=== PATIENT | female | born 1970 | race Caucasian/White ===

== ENCOUNTER 2018-09-24 08:04 | Emergency (ER) | payer BC ==
--- OUTSIDE RECORDS SUMMARY | 2018-09-24 08:07 | XMS REPORT | Summary of Care ---
:1970 Author Organization [facility] [place] Address [address], [place] [address]- Encounter HQ Encntr_alias(FIN) [id number] Date(s): 07/28/17 - 07/28/17 [facility] [place] [address] [place] [address]- [phone] Discharge Disposition: Home or Self Care Attending Physician: Jil Ervin MD Vital Signs No data available for this section Problem List No data available for this section Allergies, Adverse Reactions, Alerts No data available for this section Medications No data available for this section Results No data available for this section Immunizations No data available for this section Procedures No data available for this section Social History No data available for this section Assessment and Plan No data available for this section
--- OUTSIDE RECORDS SUMMARY | 2018-09-24 08:07 | XMS REPORT | Summary of Care ---
:1970 Author Organization [facility] Address [address] [place], [place] [address]- Encounter HQ Jonesr_katherine(FIN) [id number] Date(s): 10/01/17 - 10/01/[address] [address]- [place] Encounter Diagnosis Chronic frontal sinusitis (Final) - 10/11/17 Chronic ethmoidal sinusitis (Final) - Chronic sphenoidal sinusitis (Final) - Chronic maxillary sinusitis (Final) - Deviated nasal septum (Final) - Fibromyalgia (Final) - Migraine, unspecified, not intractable, without status migrainosus (Final) - Arthropathic psoriasis, unspecified (Final) - Discharge Disposition: Home or Self Care Attending Physician: Jil Ervin MD Referring Physician: Jil Ervin MD Vital Signs Most recent to oldest 1 2 3 [Reference Range]: Height 162.56 cm (10/01/17 9:55 AM) Blood Pressure [90-140/60-90 100/51 mmHg 94/50 mmHg 100/55 mmHg mmHg] (10/01/17 5:15 PM) (10/01/17 5:00 PM) (10/01/17 4:45 PM) Respiratory Rate [14-20 BRMIN] 16 BRMIN 20 BRMIN 13 BRMIN (10/01/17 5:15 PM) (10/01/17 5:00 PM) *LOW* (10/01/17 4:45 PM) Peripheral Pulse Rate [60-100 68 bpm 65 bpm bpm] (10/01/17 5:15 PM) (10/01/17 9:55 AM) Weight 54.091 kg (10/01/17 9:55 AM) Body Mass Index 20.47 m2 (10/01/17 9:55 AM) Problem List No data available for this section Allergies, Adverse Reactions, Alerts Substance Reaction Severity Status NKDA Active Medications acetaminophen (ANES) 10 mg Route: IV, Drug form: INJ, Start date: 10/01/17 13:47:00 CDT, Stop date: 14:47:00 CDT Start Date: 10/01/17 Stop Date: 10/01/17 Status: CompletedANES diphenhydrAMINE 12.5 mg, 0.25 mL, Route: IVP, Drug form: INJ, Q6H, Dosing Weight 54.091, kg, PRN Itching, Start date: 10/01/17 14:41:00 CDT, Duration: 1 day, Stop date: 14:40:00 CDT Notes: (Same as: Benadryl) Start Date: 10/01/17 Stop Date: 10/02/17 Status: DiscontinuedANES flumazenil 0.2 mg, 2 mL, Route: IVP, Drug form: INJ, PRN, Dosing Weight 54.091, kg, PRN Benzodiazepine Reversal, Initial dose, Start date: 10/01/17 14:41:00 CDT, Duration: 1 day, Stop date: 10/02/17 14:40:00 CDT Notes: (Same as: Romazicon) Start Date: 10/01/17 Stop Date: 10/02/17 Status: DiscontinuedANES HYDROmorphone 0.5 mg, 0.25 mL, Route: IVP, Drug form: INJ, Q5Min, Dosing Weight 54.091, kg, PRN Pain Score 7-10, Start date: 10/01/17 14:41:00 CDT, Duration: 4 doses or times, Stop date: 10/02/17 0:00:00 CDT Notes: Same as Dilaudid Start Date: 10/01/17 Stop Date: 10/02/17 Status: CompletedANES metoprolol 1 mg, Route: IVP, Q5Min, Dosing Weight 54.091, kg, PRN Other -See Comment, Start date: 10/01/17 14:41:00 CDT, Duration: 5 doses or times, Stop date: Limited # of times Start Date: 10/01/17 Stop Date: 10/01/17 Status: DiscontinuedANES naloxone 0.4 mg, 1 mL, Route: IVP, Drug form: INJ, Q2MIN, Dosing Weight 54.091, kg, PRN Narcotic Reversal, Start date: 10/01/17 14:41:00 CDT, Duration: 8 doses or times , Stop date: 10/02/17 0:00:00 CDT Notes: Same as Narcan Start Date: 10/01/17 Stop Date: 10/02/17 Status: CompletedANES ondansetron 4 mg, 2 mL, Route: IVP, Drug form: INJ, ONCE, Dosing Weight 54.091, kg, PRN Nausea & Vomiting, Start date: 10/01/17 14:41:00 CDT Notes: (Same as: Lesa) MEDICATION WASTE Product Size: 4 mgProduct Wasted: ___ mg Start Date: 10/01/17 Stop Date: 10/02/17 Status: DiscontinuedANES oxyCODONE 10 mg, 2 tab, Route: PO, Drug form: TAB, Q4H, Dosing Weight 54.091, kg, PRN Pain Score 7-10, Start date: 10/01/17 14:41:00 CDT, Duration: 1 day, Stop date: 10/02/17 14:40:00 CDT Notes: (Same as: Roxicodone) Start Date: 10/01/17 Stop Date: 10/02/17 Status: Discontinuedcefadroxil 500 mg oral capsule 500 mg=1 cap, PO, Q12H, X 10 day, # 20 cap, 0 Refill(s) Start Date: 10/01/17 Stop Date: 10/11/17 Status: CompletedceFAZolin (ANES) Route: IV, Drug form: INJ, ONCE, Stop date: 10/01/17 13:49:00 CDT Start Date: 10/01/17 Stop Date: 10/01/17 Status: CompletedCimzia 400 mg, SUB-Q, q4wk, 0 Refill(s) Start Date: 10/01/17 Status: Ordereddexamethasone (ANES) Route: IV, Drug form: INJ, ONCE, Stop date: 10/01/17 14:15:00 CDT Start Date: 10/01/17 Stop Date: 10/01/17 Status: Completeddiclofenac sodium 50 mg oral enteric coated, delayed-release tablet 50 mg=1 tab, PO, TID, # 20 tab, 0 Refill(s) Start Date: 10/01/17 Status: OrderedfentaNYL (ANES) Route: IV, Drug form: INJ, ONCE, Stop date: 10/01/17 14:00:00 CDT Start Date: 10/01/17 Stop Date: 10/01/17 Status: CompletedFlorastor 250 mg, PO, BID, 0 Refill(s) Start Date: 10/01/17 Status: Orderedglycopyrrolate (ANES) Route: IV, Drug form: INJ, ONCE, Stop date: 10/01/17 16:24:00 CDT Start Date: 10/01/17 Stop Date: 10/01/17 Status: Completedhydromorphone (ANES) Route: IV, Drug form: INJ, ONCE, Stop date: 10/01/17 15:45:00 CDT Start Date: 10/01/17 Stop Date: 10/01/17 Status: CompletedketAMINE (ANES) Route: IV, Drug form: INJ, ONCE, Stop date: 10/01/17 14:40:00 CDT Start Date: 10/01/17 Stop Date: 10/01/17 Status: CompletedketOROLAC (ANES) IV, ONCE Start Date: 10/01/17 Stop Date: 10/01/17 Status: CompletedLactated Ringers Injection IV (ANES) 1000 mL Route: IV, Total Volume: 1,000, Start date: 10/01/17 12:25:00 CDT, Stop date: 13:25:00 CDT Start Date: 10/01/17 Stop Date: 10/01/17 Status: CompletedLactated Ringers Injection IV 1,000 mL 1,000 mL, Rate: 125 ml/hr, Infuse over: 8 hr, Route: IV, Dosing Weight 54.091 kg , Total Volume: 1,000, Start date: 10/01/17 14:41:00 CDT, Duration: 30 day, Stop date: 10/31/17 14:40:00 CDT, 1.57, m2 Start Date: 10/01/17 Stop Date: 10/02/17 Status: Discontinuedlevothyroxine 100 mcg (0.1 mg) intravenous injection IV, Daily, 0 Refill(s) Start Date: 10/01/17 Status: Orderedlidocaine Transdermal, PRN, 0 Refill(s) Start Date: 10/01/17 Status: Orderedlidocaine (ANES) Route: IV, Drug form: INJ, ONCE, Stop date: 10/01/17 14:00:00 CDT Start Date: 10/01/17 Stop Date: 10/01/17 Status: Completedmetoprolol tartrate 25 mg oral tablet 25 mg=1 tab, PO, BID, 0 Refill(s) Start Date: 10/01/17 Status: Orderedmidazolam (ANES) Route: IV, Drug form: SOLN, ONCE, Stop date: 10/01/17 14:25:00 CDT Start Date: 10/01/17 Stop Date: 10/01/17 Status: Completedmultivitamin Daily, 0 Refill(s) Start Date: 10/01/17 Status: Orderedneostigmine (ANES) Route: IV, Drug form: INJ, ONCE, Stop date: 10/01/17 16:24:00 CDT Start Date: 10/01/17 Stop Date: 10/01/17 Status: CompletedNorco 10/325 oral tablet 1 tab, PO, Q6H, 0 Refill(s) Start Date: 10/01/17 Status: Orderedondansetron (ANES) Route: IV, Drug form: INJ, ONCE, Stop date: 10/01/17 16:24:00 CDT Start Date: 10/01/17 Stop Date: 10/01/17 Status: Completedphenylephrine (ANES) Route: IV, Drug form: INJ, ONCE, Stop date: 10/01/17 14:10:00 CDT Start Date: 10/01/17 Stop Date: 10/01/17 Status: Completedpropofol (ANES) Route: IV, Drug form: INJ, ONCE, Stop date: 10/01/17 14:00:00 CDT Start Date: 10/01/17 Stop Date: 10/01/17 Status: Completedrocuronium (ANES) Route: IV, Drug form: INJ, ONCE, Stop date: 10/01/17 14:25:00 CDT Start Date: 10/01/17 Stop Date: 10/01/17 Status: CompletedsulfaSALAzine 500 mg oral tablet 1,000 mg=2 tab, PO, BID, 0 Refill(s) Start Date: 10/01/17 Status: OrderedTopamax 200 mg oral tablet 200 mg=1 tab, PO, BID, 0 Refill(s) Start Date: 10/01/17 Status: OrderedUltram ER 200 mg oral tablet, extended release 200 mg=1 tab, PO, Daily, 0 Refill(s) Start Date: 10/01/17 Status: OrderedVoltaren 50 mg=1 tab, PO, TID, PRN pain, # 30 tab, 0 Refill(s) Start Date: 10/01/17 Stop Date: 10/01/17 Status: Discontinued Results No data available for this section Immunizations No data available for this section Procedures Procedure Date Related Diagnosis Body Site Status Hysterectomy Completed Tonsillotomy Completed Social History Social History Type Response Smoking Status Current every day smoker; Type: Cigarettes; Previous treatment : None; Ready to change: Yes; Concerns about tobacco use in household: Yes; Exposure to Tobacco Smoke None; Cigarette Smoking Last 365 Days Yes; Reg Smoking Cessation Counseling Yes entered on: 10/01/17 Assessment and Plan No data available for this section
--- OUTSIDE RECORDS SUMMARY | 2018-09-24 08:07 | XMS REPORT | Summary of Care ---
:1970 Author Organization [facility] Out[facility] Address [address] [place] [address]- Encounter HQ Encntr_alias(FIN) [id number] Date(s): 01/07/17 - 01/07/17 [facility] Outpatient Imaging [address] [address]- [phone] Discharge Disposition: Home or Self Care Attending Physician: Alverto Richardson MD Vital Signs No data available for [...]
--- OUTSIDE RECORDS SUMMARY | 2018-09-24 08:07 | XMS REPORT | Clinical Summary ---
:1970 Author Organization [facility] Address [address] [place] [address] Care Team Providers Name Role Phone Janice Ochoa MD Primary Care Provider Allergies Not on File Medications Not on file Active Problems Not on file Encounters Date Type Specialty Care Team Description 06/23/2018 Hospital Encounter Radiology [facility] Screening for MD Jose osteoporosis 06/23/2018 Hospital Encounter Radiology [facility] Breast cancer screening MD Jose 05/20/2018 Transcribe Orders Access [facility] Breast cancer screening (Primary Dx); MD Jose Screening for osteoporosis after 09/23/2017 Social History Tobacco Use Types Packs/Day Years Used Date Never Assessed Sex Assigned at Date Recorded Not on file Job Start Date Occupation Industry Not on file Not on file Not on file Travel History Travel Start Travel End No recent travel history available. Last Filed Vital Signs Not on file Plan of Treatment Health Maintenance Due Date Last Done Comments INFLUENZA VACCINE 10/13/2018 Procedures Procedure Name Priority Date/Time Associated Diagnosis Comments MAMMO BREAST SCREEN Routine 06/23/2018 12:44 Breast cancer Results for this TOMOSYNTHESIS PM CDT screening procedure are in BILATERAL the results section. BONE DENSITY Routine 06/23/2018 12:30 Screening for Results for this PM CDT osteoporosis procedure are in the results section. after 09/23/2017 Results Mammo Breast Screen Tomosynthesis Bilateral (06/23/2018 12:44 PM CDT) Specimen Narrative Performed At EXAMINATION: MAMMO BREAST SCREEN TOMOSYNTHESIS BILATERAL [facility] COMPARISON:Mammograms dated 12/2013 through 05/2017 TECHNIQUE: Bilateral digital screening mammography was performed with tomosynthesis and interpreted using computer-assisted detection. CLINICAL HISTORY: 47-year-old asymptomatic female. No personal or family history of breast malignancy. The patient presents for routine screening. FINDINGS: There are scattered fibroglandular densities. An asymmetry seen in the medial right breast middle depth is similar in appearance compared to prior mammograms dating back to 2015 allowing for differences in patient positioning and imaging technique. There are no new suspicious masses, calcifications or distortions in either breast.There has been no significant interval change compared to prior. IMPRESSION: No specific mammographic features of breast malignancy. BI-RADS 2:BENIGN Recommend comparison with physical examination. In the absence of new clinical findings, the patient should return for bilateral screening mammography in 1 year. This facility is accredited by the [employer] for Mammography. A negative x-ray report should not delay biopsy if a dominant or clinically suspicious mass is present.Not all cancers are identified by x-ray. [id number] Performing Organization Address City/State/Zipcode Phone Number [facility] [address] [place] [address] Bone Density (06/23/2018 12:30 PM CDT) Specimen Narrative Performed At EXAMINATION:BONE DENSITY [facility] CLINICAL HISTORY:Z13.820 Encounter for screening for osteoporosis, Z13.820.Osteoporosis screening. COMPARISON:05/11/2016 The results of this study expressed as bone mineral density (BMD) were as follows: AP spine (L1- L4) BMD: 1.101g/cm2 T-Score: -0.8 Percent Change: -0.8 Dual Femur (Total Mean): BMD: 0.864g/cm2 T-Score: -1.1 Percent Change: -0.2 Impression: Osteopenia femurs. Within range lumbar spine [facility]-[id number] A copy of this scans including a report detailing these results will follow. Note: The world health organization (WHO) has classified the patient's T-score as follows: At or above (-1) as normal Between (-1) to (-2.5) as low (osteopenia) Below (-2.5) as abnormally low (osteoporosis, increased fracture risk) Dual femur FRAX: Risk factors: None. 10 year probability of fracture: 1.Major osteoporotic: 3.1 % 2.Hip: 0.2 % 3.Based on dual femur rightneck BMD Procedure Note Interface, Radiology Results Incoming - 06/24/2018 3:06 PM CDT EXAMINATION: BONE DENSITY CLINICAL HISTORY: Z13.820 Encounter for screening for osteoporosis, Z13.820. Osteoporosis screening. COMPARISON: 05/11/2016 The results of this study expressed as bone mineral density (BMD) were as follows: AP spine (L1- L4) BMD: 1.101 g/cm2 T-Score: -0.8 Percent Change: -0.8 Dual Femur (Total Mean): BMD: 0.864 g/cm2 T-Score: -1.1 Percent Change: -0.2 Impression: Osteopenia femurs. Within range lumbar spine [facility]-[id number] A copy of this scans including a report detailing these results will follow. Note: The world health organization (WHO) has classified the patient's T-score as follows: At or above (-1) as normal Between (-1) to (-2.5) as low (osteopenia) Below (-2.5) as abnormally low (osteoporosis, increased fracture risk) Dual femur FRAX: Risk factors: None. 10 year probability of fracture: 1. Major osteoporotic: 3.1 % 2. Hip: 0.2 % 3. Based on dual femur right neck BMD Performing Organization Address City/State/Zipcode Phone Number [facility] [address] [place] [address] after 09/23/2017 Advance Directives Patient has advance care planning documents on file. For more information, please contact:[place] [id number] [place] [address]
--- OUTSIDE RECORDS SUMMARY | 2018-09-24 08:07 | XMS REPORT | Continuity of Care Document ---
:1970 Author Organization [employer] Care Team Providers Name Role Phone [employer] Unavailable Unavailable Problems Problem Status Onset Classification Date Comments Source Date Reported Chronic frontal 10/13/19 04/20/2018 [facility] sinusitis [facility] CHRONIC Active 10/01/19 [facility] SPHENOIDAL Medical SINUSITIS Center J32.2 - CHRONIC Active 07/22/19 [facility] [address] [place] [address] SINUSITIS J32. 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 [facility] septum [facility] Center Fibromyalgia 04/20/2018 [facility] Migraine, 04/20/2018 [facility] unspecified, not Medical intractable, Center without status migrainosus Arthropathic 04/20/2018 [facility] psoriasis, Medical unspecified Center Medications Medication Details Route Status Patient Ordering Order Source Instructions Provider Date glycopyrrolate Route: IV, Drug Inactive 10/01[facility] (ANES) form: INJ, ONCE, 2017 Medical Stop date: [place] 10/01/17 16:24:00 CDT ondansetron Route: IV, Drug Inactive 10/01[facility] (ANES) form: INJ, ONCE, 2017 Medical Stop date: [place] 10/01/17 16:24:00 CDT neostigmine Route: IV, Drug Inactive 10/01[facility] (ANES) form: INJ, ONCE, 2017 Medical Stop date: [place] 10/01/17 16:24:00 CDT diclofenac sodium 50 mg=1 tab, PO, Active 10/01[facility] [place] 50 mg oral TID, # 20 tab, 0 2017 [facility] enteric coated, Refill(s) [place] delayed-release tablet cefadroxil 500 mg 500 mg=1 cap, No Longer 07/20[facility] oral capsule PO, Q12H, X 10 Active 2017 day, # 20 cap, 0 Center Refill(s) hydromorphone Route: IV, Drug Inactive [place] (ANES) form: INJ, ONCE, 2018 Medical Stop date: Center 10/01/17 15:45:00 CDT ketOROLAC (ANES) IV, ONCE Inactive [place] 2017 [facility] Center Oxycodone 10 mg, 2 tab, No Longer [place] Route: PO, Drug Active 2017 Medical form: TAB, Q4H, Center Dosing Weight 54.091, kg, PRN Pain Score 7-10, Start date: 10/01/17 14:41:00 CDT, Duration: 1 day, Stop date: 10/02/17 14:40:00 CDTNotes: (Same as: Roxicodone) Ondansetron 4 mg, 2 mL, No Longer [place] Route: IVP, Drug Active 2017 Medical form: INJ, ONCE, Center Dosing Weight 54.091, kg, PRN Nausea & Vomiting, Start date: 10/01/17 14:41:00 CDTNotes: (Same as: Zofran) MEDICATION WASTE Product Size: 4 mg Product Wasted: ___ mg Diphenhydramine 12.5 mg, 0.25 No Longer [place] mL, Route: IVP, Active 2017 Medical Drug form: INJ, Center Q6H, Dosing Weight 54.091, kg, PRN Itching, Start date: 10/01/17 14:41:00 CDT, Duration: 1 day, Stop date: 10/02/17 14:40:00 CDTNotes: (Same as: Benadryl) Flumazenil 0.2 mg, 2 mL, No Longer [place] Route: IVP, Drug Active 2017 Medical form: INJ, PRN, Center Dosing Weight 54.091, kg, PRN Benzodiazepine Reversal, Initial dose, Start date: 10/01/17 14:41:00 CDT, Duration: 1 day, Stop date: 10/02/17 14:40:00 CDTNotes: (Same as: Romazicon) Naloxone 0.4 mg, 1 mL, No Longer [place] Route: IVP, Drug Active 2017 Medical form: INJ, Center Q2MIN, Dosing Weight 54.091, kg, PRN Narcotic Reversal, Start date: 10/01/17 14:41:00 CDT, Duration: 8 doses or times, Stop date: 10/02/17 0:00:00 CDTNotes: Same as Narcan Hydromorphone 0.5 mg, 0.25 mL, No Longer [place] Route: IVP, Drug Active 2017 Medical form: INJ, Center Q5Min, Dosing Weight 54.091, kg, PRN Pain Score 7-10, Start date: 10/01/17 14:41:00 CDT, Duration: 4 doses or times, Stop date: 10/02/17 0:00:00 CDTNotes: Same as Dilaudid Metoprolol 1 mg, Route: Inactive [place] IVP, Q5Min, 2018 Medical Dosing Weight Center 54.091, kg, PRN Other -See Comment, Start date: 10/01/17 14:41:00 CDT, Duration: 5 doses or times, Stop date: Limited # of times Calcium Chloride 1,000 mL, Rate: No Longer [place] 0.0014 MEQ/ML / 125 ml/hr, Active 2017 Medical Potassium Infuse over: 8 Center Chloride 0.004 hr, Route: IV, MEQ/ML / Sodium Dosing Weight Chloride 0.103 54.091 kg, Total MEQ/ML / Sodium Volume: 1,000, Lactate 0.028 Start date: MEQ/ML Injectable 10/01/17 Solution 14:41:00 CDT, Duration: 30 day, Stop date: 10/31/17 14:40:00 CDT, 1.57, m2 ketAMINE (ANES) Route: IV, Drug Inactive [place] form: INJ, ONCE, 2017 Medical Stop date: [place] 10/01/17 14:40:00 CDT rocuronium (ANES) Route: IV, Drug Inactive [place] form: INJ, ONCE, 2018 Medical Stop date: [place] 10/01/17 14:25:00 CDT midazolam (ANES) Route: IV, Drug Inactive [place] form: SOLN, 2018 Medical ONCE, Stop date: [place] 10/01/17 14:25:00 CDT dexamethasone Route: IV, Drug Inactive [place] (ANES) form: INJ, ONCE, 2017 Medical Stop date: [place] 10/01/17 14:15:00 CDT phenylephrine Route: IV, Drug Inactive [place] (ANES) form: INJ, ONCE, 2017 Medical Stop date: [place] 10/01/17 14:10:00 CDT fentaNYL (ANES) Route: IV, Drug Inactive [facility] form: INJ, ONCE, 2017 Medical Stop date: [place] 10/01/17 14:00:00 CDT propofol (ANES) Route: IV, Drug Inactive [facility] form: INJ, ONCE, 2017 Medical Stop date: [place] 10/01/17 14:00:00 CDT lidocaine (ANES) Route: IV, Drug Inactive [facility] form: INJ, ONCE, 2017 Medical Stop date: [place] 10/01/17 14:00:00 CDT ceFAZolin (ANES) Route: IV, Drug Inactive [facility] form: INJ, ONCE, 2017 Medical Stop date: [place] 10/01/17 13:49:00 CDT acetaminophen Route: IV, Drug Inactive [facility] (ANES) 10 mg form: INJ, Start 2017 Medical date: 10/01/17 [place] 13:47:00 CDT, Stop date: 10/01/17 14:47:00 CDT Lactated Ringers Route: IV, Total Inactive [facility] Injection IV Volume: 1,000, 2017 Medical (ANES) 1000 mL Start date: [place] 10/01/17 12:25:00 CDT, Stop date: 10/01/17 13:25:00 CDT Voltaren 50 mg=1 tab, PO, Inactive [facility] TID, PRN pain, # 2018 Medical 30 tab, 0 Center Refill(s) Lidocaine Transdermal, Active [facility] PRN, 0 Refill(s) 2018 [facility] multivitamin Daily, 0 Active [place] Refill(s) 2018 [facility] Center Acetaminophen 325 1 tab, PO, Q6H, Active [place] MG / Hydrocodone 0 Refill(s) 2018 Medical Bitartrate 10 MG Center Oral Tablet [[place] 10/325] Florastor 250 mg, PO, BID, Active 10/01[facility] 0 Refill(s) [address] [place] [address] 24 HR tramadol 200 mg=1 tab, Active [facility] hydrochloride 200 PO, Daily, 0 2018 Medical MG Extended Refill(s) [place] Release Tablet [Ultram] topiramate 200 MG 200 mg=1 tab, Active 10/01[facility] Oral Tablet PO, BID, 0 2017 Medical [Topamax] Refill(s) [place] levothyroxine 100 IV, Daily, 0 Active 10/01[facility] mcg (0.1 mg) Refill(s) [address] [place] [address] intravenous [place] injection sulfaSALAzine 500 1,000 mg=2 tab, Active 10/01[facility] mg oral tablet PO, BID, 0 2017 Medical Refill(s) [place] metoprolol 25 mg=1 tab, PO, Active 10/01[facility] tartrate 25 mg BID, 0 Refill(s) [address] [place] [address] oral tablet [place] Cimzia 400 mg, SUB-Q, Active 10/01[facility] q4wk, 0 2017 Medical Refill(s) Center Allergies, Adverse Reactions, Alerts No Known Medication Allergies Immunizations No Data Provided for This Section Results No Data Provided for This Section Pathology Reports No Data Provided for This Section Diagnostic Reports Report Value Date Source Sinus wo contrast CT EXAM: CT SINUS WITHOUT CONTRAST 07/28/2017 BERNADINE Corrigan DATE: 07/28/2017 9:32 AM CDT INDICATION: - J32.2 Chronic ethmoidal sinusitis COMPARISON: None TECHNIQUE: Axial noncontrast images of the sinuses, with coronal and sagittal reformats. IV contrast: None. ESTIMATED DOSE: Total DLP 920.56 mGy*cm FINDINGS: PARANASAL SINUSES: Diffuse paranasal sinus inflammatory changes are present. The left frontal sinus is partially opacified with opacification of the frontoethmoid recess and diffuse opacification of anterior ethmoid air cells. Mucosal disease is present in the left maxillary sinus with superimposed fluid level. On the right the frontal sinus is clear and frontoethmoid recess is patent. However, there is scattered mucosal disease in the ethmoid air cells and narrowing of the maxillary sinus ostium (despite prio r partial ethmoidectomy) by mucosal disease. The uncinate process remains in place. The maxillary sinus itself is partially opacified with, once again, frothy material indicative of fluid within the sinus. Bilateral sphenoid chamber opacification is present right greater than left with near complete opacification of the left posterior ethmoid air cell. Sphenoethmoid recess on the right is opacified while on the left it is clear. Hyperdense material within the left frontal sinus, left maxillary sinus, left posterior ethmoid air cell, and right sphenoid air chamber may indicate proteinaceous secretions or fungal colonization. NASAL CAVITY: Coronal reformatted images demonstrate intact appearance of the cribriform plates, fovea ethmoidalis and anterior skull base. The anterior nasal septum is intact, slightly deviated to the right but without mucosal contact with the turbinates. Incidental imaging of the orbits is unremarkable. The visualized portions of the brain parenchyma are also unremarkable. The middle ear cavities are normal and visualized portions of the mastoid air cells are clear. There is no abnormality of the other visualized osseous and soft tissue structures. IMPRESSION: 1. Partial ethmoidectomy on the right. 2. Narrowed right and opacified left ostiomeatal units. Left frontoethmoid recess opacification and right sphenoid ethmoid recess opacification. 3. Diffuse paranasal sinus inflammatory changes. Spine cervical w/wo Patient Name: MOE WOOD 01/07/2017 [facility] contrast MRI : 1970; Age: 46 years y/o Female MR: [id number] Study: Spine cervical w/wo contrast MRI 01/07/2017 6:44 AM CDT Ordering Physician: Alverto Ceballos MD Clinical Indication: M54.2 - Cervicalgia - M54.2 - Cervicalgia, Neuropathy both hands and feet, Hx of Psoriatic arthritis, Migraines, IV Contrast :10ml Doteram Comparison: None TECHNIQUE: Multiplanar noncontrast MR cervical spine was performed on a 1.5 Bambi magnet. FINDINGS: ALIGNMENT AND GENERAL ASSESSMENT: 1. Normal cervical lordosis is seen associated with mild cervical spondylosis and [id number] facet arthrosis/uncovertebral joint hypertrophy greatest in the mid cervical and lower cervical spine. 2. The cervical spinal cord signal is normal. 3. No evidence of acute fracture, dislocation, or suspicious focal osseous lesion. 4. The prevertebral and paraspinal soft tissues are normal. DISC SPACES: C2-C3: No significant disc protrusion, spinal canal narrowing, or neural foraminal narrowing. C3-C4: No significant disc protrusion, spinal canal narrowing, or neural foraminal narrowing. C4-C5: Minimal diffuse disc bulge causing minimal anterior thecal sac compression without significant spinal canal narrowing. Minimal left neural foraminal narrowing related to uncovertebral joint hyper trophy and facet arthrosis. No significant right neural foraminal narrowing. C5-C6: Mild bulging disc/osteophyte complex causing mild thecal sac compression without significant spinal canal narrowing. Moderate left neural foraminal narrowing and mild right neural foraminal narro wing related to uncovertebral joint hypertrophy and facet arthrosis. C6-C7: Minimal diffuse disc bulge causing minimal anterior thecal sac compression without significant spinal canal narrowing. No significant neural foraminal narrowing. C7-T1: No significant disc protrusion, spinal canal narrowing, or neural foraminal narrowing. IMPRESSION: 1. Mild cervical spondylosis and mild to moderate facet arthrosis greatest in the mid to lower cervical spine. 2. Mild bulging disc/osteophyte complex at C5-C6 causing mild thecal sac compression without significant spinal canal narrowing. Moderate left neural foraminal narrowing and mild right neural foraminal narrowing are present. 3. Minimal diffuse disc bulge at C4-C5 causing minimal anterior thecal sac compression without significant spinal canal narrowing. Minimal left neural foraminal narrowing is present. SL: [id number] Brain w/wo contrast Patient Name: MOE WOOD 01/07/2017 [facility] MRI : 1970; Age: 46 years y/o Female MR: [id number] Study: Brain w/wo contrast MRI 01/07/2017 8:43 AM CDT Ordering Physician: Alverto Ceballos MD Clinical Indication: G43.909 - Migraine, unspecified, not intractable - G43.909 - Migraine, unspecified, not intractable, Neuropathy both hands and feet , migraines, IV Contrast:10ml Doteram; Comparison: None TECHNIQUE: Multiplanar pre- and post-gadolinium contrast-enhanced MRI of the brain is performed. Contrast: 10 cc of gadolinium was administered. FINDINGS: The brain parenchyma is unremarkable. There is no evidence of acute intracranial hemorrhage, acute or subacute infarct, mass, focal edema, midline shift or extra-axial fluid collection. The ventricles and basilar cisterns are unremarkable. There is no abnormal meningeal or parenchymal enhancement. The craniocervical junction and midline structures are unremarkable. The central intracranial flow voids are maintained. The visualized orbits, paranasal sinuses and mastoids are unremarkable. The nasal septum is deviated to the right. IMPRESSION: 1. Unremarkable pre- and postcontrast MRI of the brain without evidence of acute intracranial process. Consultation Notes No Data Provided for This Section Discharge Summaries No Data Provided for This Section History and Physicals No Data Provided for This Section Vital Signs Vital Sign Value Date Comments Source Systolic (mm Hg) 100 10/01/2017 [facility] Diastolic (mm Hg) 51 10/01/2017 [facility] Respitory Rate 16 10/01/2017 [facility] Heart Rate 68 10/01/2017 [facility] Systolic (mm Hg) 94 10/01/2017 [facility] Diastolic (mm Hg) 50 10/01/2017 [facility] Respitory Rate 20 10/01/2017 [facility] Systolic (mm Hg) 100 10/01/2017 [facility] Diastolic (mm Hg) 55 10/01/2017 [facility] Respitory Rate 13 10/01/2017 [facility] Weight 54.091 10/01/2017 [facility] BMI Calculated 20.47 10/01/2017 [facility] Height 162.56 cm 10/01/2017 [facility] Heart Rate 65 10/01/2017 [facility] Encounters Location Location Encounter Encounter Reason Attending ADM DC Status Source Details Type Number For Provider Date Date Visit [facility] Outpt Diag [id number] Alverto 01/07 01/08 [facility] Outpt Diag [id number] Jil 07/28 07/29 [facility] [id number] Jil 10/01 10/02 [facility] Procedures Procedure Code Date Perfomer Comments Source Hysterectomy [id number] [facility] Tonsillotomy [id number] [facility] Assessment and Plan No Data Provided for This Section Plan of Care No Data Provided for This Section Social History Social History Date Source Social History TypeResponse 10/01/2017 [facility] Smoking Status Current every day smoker; Type: Cigarettes; Previous treatment: None; Ready to change: Yes; Concerns about tobacco use in household: Yes; Exposure to Tobacco Smoke None; Cigarette Smoking Last 365 Days Yes; Reg Smoking Cessation Counseling Yes entered on: 10/01/17 No data available for this 07/29/2017 [facility] section No data available for this 01/08/2017 [facility] section Family History No Data Provided for This Section Advance Directives No Data Provided for This Section Functional Status No Data Provided for This Section
[2018-09-24] MEDS ORDERED: ONDANSETRON 4 MG/2 ML VIAL ONE (08:59)
[2018-09-24] MEDS ORDERED: FENTANYL CITR 100 MCG/2 ML ONE ×2 (08:59→10:18)
[2018-09-24] MEDS ORDERED: CLINDAMYCIN 900MG/D5W 900 MG/50 ML IVPB IV ONE (08:59)
[2018-09-24] MEDS ORDERED: TETANUS & DIPHTHERIA TOX,ADULT 0.5 ML VIAL ONE (09:00)
[2018-09-24] MEDS ORDERED: LIDOCAINE/PRILOCAINE CREAM TOP ONE (09:45)
--- NOTE | 2018-09-24 11:14 | EDPHYS ---
Physician Documentation [facility] Name: Allison De La Rosa Age: 48 yrs Sex: Female : 1970 Arrival Date: 09/24/2018 Time: 08:07 Bed 14 Private MD: ED Physician Jean Richard HPI: 09/24 08:56 This 48 yrs old Female presents to ER via Ambulatory with complaints of pm1 Abscess. 08:56 the patient presents with a swollen area of the prepuce. Description: swollen. Onset: pm1 The symptoms/episode began/occurred 6 day(s) ago. Possible cause(s): unknown. Associated signs and symptoms: Pertinent negatives: fever. Modifying factors: the symptoms are alleviated by nothing, the symptoms are aggravated by touching. Severity of symptoms: in the emergency department the symptoms are actually worse. The patient has not experienced similar symptoms in the past. The patient has not recently seen a physician. Reports history of 1-2 times per year occurrence in the same area. Typically treats with warm compresses, and baths and it usually self expresses. DIRECTOR OF NUCLEAR MEDICINE: 08:11 LMP N/A - Hysterectomy aa5 Historical: - Allergies: 08:10 No Known Allergies; aa5 - PMHx: 08:10 Fibromyalgia; Migraines; Hypothyroidism; mitral valve prolapse; psoriatic arthritis; aa5 - PSHx: 08:10 partial hysterectomy; Tonsillectomy; aa5 - Immunization history:: Flu vaccine is up to date. - Social history:: Smoking status: Patient/guardian denies using tobacco. - Ebola Screening: : No symptoms or risks identified at this time. ROS: 09:00 Constitutional: Negative for fever, chills, and weight loss, Cardiovascular: Negative pm1 for chest pain, palpitations, and edema, Respiratory: Negative for shortness of breath, cough, wheezing, and pleuritic chest pain, Abdomen/GI: Negative for abdominal pain, nausea, vomiting, diarrhea, and constipation, Back: Negative for injury and pain, MS/Extremity: Negative for injury and deformity. 09:00 Neuro: Negative for headache, weakness, numbness, tingling, and seizure. 09:00 : Negative for urinary symptoms, vaginal bleeding, vaginal discharge, vaginal itching. 09:00 Skin: Positive for abscess, of the groin, Negative for cellulitis. Exam: 09:00 Constitutional: This is a well developed, well nourished patient who is awake, alert, pm1 and in no acute distress. Head/Face: Normocephalic, atraumatic. Chest/axilla: Normal chest wall appearance and motion. Nontender with no deformity. No lesions are appreciated. Cardiovascular: Regular rate and rhythm with a normal S1 and S2. No gallops, murmurs, or rubs. Normal PMI, no JVD. No pulse deficits. Respiratory: Lungs have equal breath sounds bilaterally, clear to auscultation and percussion. No rales, rhonchi or wheezes noted. No increased work of breathing, no retractions or nasal flaring. Abdomen/GI: Soft, non-tender, with normal bowel sounds. No distension or tympany. No guarding or rebound. No evidence of tenderness throughout. Back: No spinal tenderness. No costovertebral tenderness. Full range of motion. 09:00 Skin: Warm, dry with normal turgor. Normal color with no rashes, no lesions, and no evidence of cellulitis. MS/ Extremity: Pulses equal, no cyanosis. Neurovascular intact. Full, normal range of motion. 09:00 : Pelvic Exam: External exam: no appreciated Bartholin's cyst, no evidence of foreign body, no ulcerations, no warts seen, Giovanna RN present. Swelling to the left side of prepuce. 09:00 Neuro: Orientation: is normal, Motor: is normal, moves all fours. Vital Signs: 08:11 BP 126 / 54; Pulse 74; Resp 16 S; Temp 98.7(TE); Pulse Ox 99% on R/A; Weight 53.07 kg aa5 (R); Height 5 ft. 4 in. (162.56 cm) (R); Pain 8/10; 09:11 BP 104 / 58; Pulse 70; Resp 17; Temp 98.6(O); Pulse Ox 100% on R/A; Pain 7/10; rb1 10:00 BP 105 / 59; Pulse 68; Resp 17; Temp 98.1(O); Pain 8/10; rb1 10:58 BP 107 / 56; Pulse 75; Resp 16; Temp 98.0(O); Pulse Ox 100% on R/A; mh5 11:50 BP 106 / 60; Pulse 71; Resp 17; Temp 98.4(O); Pulse Ox 99% on R/A; Pain 5/10; rb1 08:11 Body Mass Index 20.08 (53.07 kg, 162.56 cm) aa5 Procedures: 11:00 I \T\ D: Incision and drainage was performed for an abscess of the prepuce Prepped with pm1 Betadine, Anesthetized with EMLA cream. Incised with 18 gauge needle - Needle aspiration. Drained small amount the patient tolerated the procedure well, culture collected. 11:00 Performed I \T\ D with [employer] mechanical manufacturing technician, chaperoned procedure. pm1 MDM: 08:19 Patient medically screened. pm1 09:30 ED course: Patient does not want anyone, me or gynecology, to perform incision and pm1 drainage with a scalp. Patient said that she would like a needle aspiration if possible. Since the patient would not want an incision and drainage with a scalp which I told her would be the appropriate treatment, I will perform a needle aspiration to express abscess and give patient prescription for antibiotics. 10:39 Data reviewed: vital signs. Data interpreted: Pulse oximetry: on room air is 100 %. pm1 Interpretation: normal. Counseling: I had a detailed discussion with the patient and/or guardian regarding: the historical points, exam findings, and any diagnostic results supporting the discharge/admit diagnosis, the need for outpatient follow up, an OB/Gyne specialist, to return to the emergency department if symptoms worsen or persist or if there are any questions or concerns that arise at home. 09/24 11:03 Order name: Wound Culture pm1 09/24 08:41 Order name: IV Start; Complete Time: :09 rb1 Administered Medications: 08:55 Drug: Clindamycin 900 mg Route: IVPB; Infused Over: 30 mins; Site: right antecubital; rb1 09:30 Follow up: Response: No adverse reaction; IV Status: Completed infusion rb1 08:55 Drug: fentaNYL (PF) 50 mcg Route: IVP; Site: right antecubital; rb1 09:10 Follow up: Response: No adverse reaction; Pain is decreased rb1 08:55 Drug: Zofran 4 mg Route: IVP; Site: right antecubital; rb1 09:10 Follow up: Response: No adverse reaction; Nausea is decreased rb1 09:00 Drug: Tetanus-Diphtheria Toxoid Adult 0.5 ml {Bundle Person: [facility]. Exp: rb1 06/04/2020. Lot #: [id number]. } Route: IM; Site: right deltoid; 09:15 Follow up: Response: No adverse reaction rb1 09:59 Drug: EMLA Lidocaine 2.5% - Prilocaine 2.5% 1 application Route: Topical; Site: aa5 affected area; 10:09 Drug: fentaNYL (PF) 50 mcg Route: IVP; Site: right antecubital; rb1 10:25 Follow up: Response: No adverse reaction; Pain is decreased rb1 11:28 Drug: morphine 4 mg Route: IVP; Site: right antecubital; rb1 11:45 Follow up: Response: No adverse reaction; Pain is decreased rb1 Disposition: 15:13 Co-signature as Attending Physician, Jean Richard MD. rn Disposition: 09/24/18 11:13 Discharged to Home. Impression: Cutaneous abscess of groin. - Condition is Stable. - Discharge Instructions: Skin Abscess, Incision and Drainage. - Prescriptions for Clindamycin HCl 300 mg Oral Capsule - take 1 capsule by ORAL route every 6 hours for 10 days; 40 capsule. - Medication Reconciliation Form, Thank You Letter, Antibiotic Education, Prescription Opioid Use form. - Follow up: Emergency Department; When: As needed; Reason: Worsening of condition. Follow up: Sisi Donohue MD; When: 2 - 3 days; Reason: Recheck today's complaints, Continuance of care, Re-evaluation by your physician. - Problem is new. - Symptoms have improved. Signatures: Dispatcher [employer] EDMS Jean Richard MD MD rn Calderon, Audri, RN RN aa5 Luiza Lake RN RN rb1 Anton Angeles NP CAB SUPERVISOR pm1 Corrections: (The following items were deleted from the chart) 11:55 11:13 09/24/2018 11:13 Discharged to Home. Impression: Cutaneous abscess of groin. rb1 Condition is Stable. Forms are Medication Reconciliation Form, Thank You Letter, Antibiotic Education, Prescription Opioid Use. Follow up: Emergency Department; When: As needed; Reason: Worsening of condition. Follow up: Sisi Donohue; When: 2 - 3 days; Reason: Recheck today's complaints, Continuance of care, Re-evaluation by your physician. Problem is new. Symptoms have improved. pm1
--- NOTE | 2018-09-24 11:14 | ER ---
Nurse's Notes [facility] Name: Allison De La Rosa Age: 48 yrs Sex: Female : 1970 Arrival Date: 09/24/2018 Time: 08:07 Bed 14 Private MD: Diagnosis: Cutaneous abscess of groin Presentation: 09/24 08:10 Presenting complaint: Patient states: genital abscess that began 2-3 days ago. aa5 08:10 Transition of care: patient was not received from another setting of care. Onset of aa5 symptoms was September 2018. Risk Assessment: Do you want to hurt yourself or someone else? Patient reports no desire to harm self or others. Initial Sepsis Screen: Does the patient meet any 2 criteria? No. Patient's initial sepsis screen is negative. Does the patient have a suspected source of infection? No. Patient's initial sepsis screen is negative. Care prior to arrival: None. 08:10 Acuity: KEY 3 aa5 08:10 Method Of Arrival: Ambulatory aa5 MARKETING PROPOSAL SPECIALIST: 08:11 LMP N/A - Hysterectomy aa5 Historical: - Allergies: 08:10 No Known Allergies; aa5 - PMHx: 08:10 Fibromyalgia; Migraines; Hypothyroidism; mitral valve prolapse; psoriatic arthritis; aa5 - PSHx: 08:10 partial hysterectomy; Tonsillectomy; aa5 - Immunization history:: Flu vaccine is up to date. - Social history:: Smoking status: Patient/guardian denies using tobacco. - Ebola Screening: : No symptoms or risks identified at this time. Screenin:10 Abuse screen: Denies threats or abuse. Nutritional screening: No deficits noted. rb1 Tuberculosis screening: No symptoms or risk factors identified. Fall Risk None identified. Assessment: 08:10 General: Appears uncomfortable, Behavior is calm, cooperative, crying, Denies fever. rb1 Pain: Complains of pain in clitoris Pain currently is 10 out of 10 on a pain scale. Pain began Beginning of the week. Neuro: Level of Consciousness is awake, alert, obeys commands, Oriented to person, place, time, situation. Cardiovascular: Capillary refill < 3 seconds is brisk in bilateral fingers. Respiratory: Airway is patent Respiratory effort is even, unlabored, Respiratory pattern is regular, symmetrical. GI: No signs and/or symptoms were reported involving the gastrointestinal system. : No signs and/or symptoms were reported regarding the genitourinary system. Derm: Skin is pink, warm \T\ dry. 09:00 Reassessment: Patient appears in no apparent distress at this time. No changes from rb1 previously documented assessment. 09:33 Reassessment: Faxed order to pharmacy for EMLA cream. rb1 10:00 Reassessment: Patient appears in no apparent distress at this time. Patient and/or rb1 family updated on plan of care and expected duration. Pain level reassessed. Patient is alert, oriented x 3, equal unlabored respirations, skin warm/dry/pink. 11:00 Reassessment: Patient appears in no apparent distress at this time. No changes from rb1 previously documented assessment. 11:50 Reassessment: Patient appears in no apparent distress at this time. Patient and/or rb1 family updated on plan of care and expected duration. Pain level reassessed. Patient is alert, oriented x 3, equal unlabored respirations, skin warm/dry/pink. at bedside. Vital Signs: 08:11 BP 126 / 54; Pulse 74; Resp 16 S; Temp 98.7(TE); Pulse Ox 99% on R/A; Weight 53.07 kg aa5 (R); Height 5 ft. 4 in. (162.56 cm) (R); Pain 8/10; 09:11 BP 104 / 58; Pulse 70; Resp 17; Temp 98.6(O); Pulse Ox 100% on R/A; Pain 7/10; rb1 10:00 BP 105 / 59; Pulse 68; Resp 17; Temp 98.1(O); Pain 8/10; rb1 10:58 BP 107 / 56; Pulse 75; Resp 16; Temp 98.0(O); Pulse Ox 100% on R/A; mh5 11:50 BP 106 / 60; Pulse 71; Resp 17; Temp 98.4(O); Pulse Ox 99% on R/A; Pain 5/10; rb1 08:11 Body Mass Index 20.08 (53.07 kg, 162.56 cm) aa5 ED Course: 08:07 Patient arrived in ED. as 08:09 Luiza Lake, RN is Primary Nurse. rb1 08:10 Arm band placed on Patient placed in an exam room, on a stretcher. aa5 08:10 Patient has correct armband on for positive identification. Bed in low position. Call rb1 light in reach. Side rails up X 1. Placed in gown. Pulse ox on. NIBP on. Warm blanket given. 08:16 Anton Angeles NP is PHCP. pm1 08:16 Jean Richard MD is Attending Physician. pm1 08:16 Triage completed. aa5 08:55 Inserted saline lock: 22 gauge in right antecubital area, using aseptic technique. rb1 11:13 Sisi Donohue MD is Referral Physician. pm1 11:50 No provider procedures requiring assistance completed. IV discontinued, intact, rb1 bleeding controlled, No redness/swelling at site. Pressure dressing applied. Administered Medications: 08:55 Drug: Clindamycin 900 mg Route: IVPB; Infused Over: 30 mins; Site: right antecubital; rb1 09:30 Follow up: Response: No adverse reaction; IV Status: Completed infusion rb1 08:55 Drug: fentaNYL (PF) 50 mcg Route: IVP; Site: right antecubital; rb1 09:10 Follow up: Response: No adverse reaction; Pain is decreased rb1 08:55 Drug: Zofran 4 mg Route: IVP; Site: right antecubital; rb1 09:10 Follow up: Response: No adverse reaction; Nausea is decreased rb1 09:00 Drug: Tetanus-Diphtheria Toxoid Adult 0.5 ml {Scientific Informatics Project Leader: [employer]. Exp: rb1 06/04/2020. Lot #: [id number]. } Route: IM; Site: right deltoid; 09:15 Follow up: Response: No adverse reaction rb1 09:59 Drug: EMLA Lidocaine 2.5% - Prilocaine 2.5% 1 application Route: Topical; Site: aa5 affected area; 10:09 Drug: fentaNYL (PF) 50 mcg Route: IVP; Site: right antecubital; rb1 10:25 Follow up: Response: No adverse reaction; Pain is decreased rb1 11:28 Drug: morphine 4 mg Route: IVP; Site: right antecubital; rb1 11:45 Follow up: Response: No adverse reaction; Pain is decreased rb1 Outcome: 11:13 Discharge ordered by . pm1 11:50 Discharged to home ambulatory, with family. rb1 11:50 Condition: stable 11:50 Discharge instructions given to patient, Instructed on discharge instructions, follow up and referral plans. medication usage, Demonstrated understanding of instructions, follow-up care, medications, Prescriptions given X 1. 11:50 Patient left the ED. rb1 Signatures: Quita Torres Audri, RN RN aa5 Luiza Lake RN RN rb1 Anton Angeles, KIMBERLYN CLOTH SHEARER pm1 Suyapa Torres [facility] Corrections: (The following items were deleted from the chart) 11:56 11:55 Patient left the ED. rb1 rb1
[2018-09-24] MEDS ORDERED: MORPHINE 4 MG/ML SYR ONE (11:40)
== END 2018-09-24 11:55 | disposition home or self-care (01) ==
LOC: ER 08:04
PROC: 0J9C0ZZ Drainage of Pelvic Region Subcutaneous Tissue and Fascia, Open Approach (ICD-10-PCS; principal; 2018-09-24)
DX: L02.214 Cutaneous abscess of groin (principal)
CPT/HCPCS: 87070; 87205; 90471; 90714; 96365; 96375; 99284; J2405; J3010